=== PATIENT | male | born 1945 | race Caucasian/White ===

== ENCOUNTER 2019-01-05 08:31 | Observation (INO) | payer MEDICARE, SELFPAY ==
[2018-12-21 12:49] VITALS: BMI 37.8
[2019-01-04] VITALS (13 sets, daily range): BP systolic 109–141; BP diastolic 58–84; PULSE 69–91; RESP 15–18; TEMP 36.3–36.6; O2SAT 96–100; BMI 37.8
--- NOTE | 2019-01-04 06:00 | DI.RAD.S_ITS ---
PROCEDURE: XR KNEE RT 1TO2V INDICATIONS: Postop right total knee TECHNIQUE: 2 view(s) of the knee acquired. COMPARISON: None. FINDINGS: Bones: Patient is status post knee joint arthroplasty. Hardware components are in expected positions. Visualized bony structures are intact. Soft tissues: Overlying postoperative changes are noted. IMPRESSION: Expected postoperative appearance Dictated by: Jw Bejarano M.D. on 01/04/2019 at 15:19 Approved by: Jw Bejarano M.D. on 01/04/2019 at 15:19
--- NOTE | 2019-01-04 09:37 | PC.NURSE ---
Day shift: Pt not on AC unit at this time.
[2019-01-04] MEDS: CELECOXIB 200 MG CAPSULE PO (09:57)
[2019-01-04] MEDS: ACETAMINOPHEN 325 MG TABLET 975 MG PO ×3 (09:57→21:37)
[2019-01-04] MEDS: PREGABALIN 75 MG CAPSULE PO (09:57)
--- NOTE | 2019-01-04 10:27 | PM.PREOP ---
Pre-operative Note Interval Note History & Physical reviewed/Exam performed by Physician: Yes Changes to H&P: Yes H&P completed within 30 days and has changed as indicated here:: Has recurrent stress related rash that has recurred over entire body. Does not appear infection related. Not significant at site of knee incision.
[2019-01-04] MEDS: LACTATED RINGERS 1,000 ML 42 ML IV ×2 (10:38→11:38)
[2019-01-04] MEDS: CEFAZOLIN 2 GM/100 ML FROZ.PIGGY IV ×2 (10:45→20:46)
[2019-01-04] MEDS: TRANEXAMIC ACID 1,000 MG VIAL 1000 MG INJ (11:15)
--- NOTE | 2019-01-04 11:17 | SUR.OPER ---
Supine on padded OR bed. Pillow under head, arms secured on padded armboards <90 degree abduction. Safety belt across torso. Non-operative leg secured with tape over blanket over lower leg. Operative leg secured in DeMayo/Chip positioner. Foam padded brace at thigh of operative leg.
[2019-01-04] MEDS: BUPIVACAINE LIPOSOME 266 MG/20 ML VIAL INJ (11:33)
[2019-01-04] MEDS: BUPIVACAINE 0.25% W/ EPI VIAL 50 ML INJ (11:34)
[2019-01-04] MEDS: MORPHINE 4 MG/ML INJ INJ (11:34)
--- NOTE | 2019-01-04 11:50 | SUR.OPER ---
Diffused redness observed on both legs and arms in pre-op area.
--- NOTE | 2019-01-04 12:44 | PM.OP.1 ---
Operative Date/Time/Diagnoses Date of procedure: 01/04/19 Time of procedure: 12:30 Pre-op diagnosis: Right knee osteoarthritis Post-op diagnosis: same Procedure & Clinicians Procedure: Right total knee replacement Same procedure as scheduled: Yes Indications: The patient has had progressively worsening right knee pain with radiographic changes consistent with arthritis. Non-operative management has failed and the patient has requested total knee replacement. The risks, benefits and alternatives to surgery were discussed with the patient prior to proceeding. Risks discussed included, but were not limited to, failure to relieve pain, stiffness, infection, nerve damage, deep venous thrombosis, pulmonary embolism, stroke, coma, heart attack, permanent paralysis and , as well as the potential need for eventual revision of the prosthetic. Surgeon: Nacho Villarreal Digital Campaign Specialist: Kiah Spain Click Yes if Unassisted: No Anesthesia Type: Spinal, Sedation and Local Operative Notes Findings: Severe tricompartmental osteoarthritis, worst in the lateral compartment with significant hypoplasia of the lateral femoral condyle. Closure Type: primary Specimen(s): none sent Prosthetic devices, grafts, tissues, transplants, or devices: Implants used in this procedure were manufactured by the [employer] and included the BCS II Journey total knee replacement with a size 6 right cobalt chromium femoral component, a size 5 right non porous tibial base plate, a 9 mm cross-linked polyethylene insert and a 38 mm oval Vijaya II patellar component. Applied: implant(s) Estimated Blood Loss (mL): 50 Blood products transfused: none Tourniquet time (min): 59 Procedure in detail: The patient was seen in the pre-operative area, where the patient identified the right knee as the operative site and this was marked with my initials. The patient received pre-operative antibiotics, and was taken to the operating room and placed on the operative table in the supine position. After satisfactory anesthesia, a multimedia developer out was performed. The right leg was encircled with a tourniquet about the proximal thigh, and the leg was prepared from the toes to the tourniquet with ChloroPrep in the usual fashion and draped through sterile drapes. The leg was elevated and exsanguinated with Eschmark bandage and the tourniquet inflated to 250 mmHg pressure. The knee was approached through an approximately 18 cm incision centered over the patella and carried into the knee through a medial parapatellar arthrotomy. The anterior osteophytes and soft tissues were removed. The rotational landmarks of [place]'s line and the transepicondylar axis were marked on the femur with electrocautery, and intramedullary guide holes for the femur and tibia were created. The distal femoral cut was made in 6 degrees of valgus using the intramedullary guide at the primary cut setting. The proximal tibial cut was then made using the intramedullary guide, taking 9 mm of bone off the less involved side. The extension gap was checked and the rotation of the femoral component confirmed with the gap balancing system. The anterior, posterior and chamfer cuts were then made. The posterior osteophytes and soft tissues were then removed. The posterior capsule was injected with part of a mixture of 50 ml 0.25% Marcaine mixed with 20 ml Exparel and 4 mg of morphine for post-operative pain control. The remainder of this mixture was injected into the capsule and subcutaneous tissues during cement curing. The tibia was prepared with the rotation set by an extra medullary guide. Trial tibial and femoral components were then placed and the intercondylar notch cut through the femoral trial. Range of motion was 0-135 degrees, with good stability throughout the range. The patella was then cut to accommodate the patellar prosthetic. There was no need for a lateral release. The trials were then removed, and the femoral hole plugged with a bone plug. The bone was prepared with pulsatile lavage, and dried with a sponge. Cement was applied and the final prosthetics placed. Excess cement was removed during and after cement curing. After confirming there was no extruded cement posteriorly, the final tibial insert was placed. The knee was copiously irrigated and the tourniquet deflated. Hemostasis was obtained. The capsule was closed with interrupted # 2 polyester suture. The subcutaneous layer was closed with 3-0 Vicryl, and the skin with a running 3-0 V-Lock suture and SteriStrips. An Aquacel Ag dressing was applied and the patient was taken to recovery having tolerated the procedure well. Complications: none Condition: stable Disposition: PACU Plan for aftercare: The patient will be maintained on a standard total knee replacement protocol with weight bearing as tolerated. The patient will receive aspirin and sequential compression devices for DVT prophylaxis. The patient will be discharged home when safe for the home environment.
--- NOTE | 2019-01-04 13:44 | PC.NURSE ---
Day shift: Arrived on unit at approx 1345 from PACU. A&Ox3. Spouse Radha at bedside for support. Rt knee ORACIO wrapped with Aquacel is CDI. CMS ok. Sensation not totally returned. PPP. Calf SCD's in place. Oriented to room and call light. Agrees to not get OOB w/o help from staff.
[2019-01-04] MEDS: LACTATED RINGERS 1,000 ML 125 ML IV ×2 (14:09→21:45)
[2019-01-04] MEDS: IBUPROFEN 600 MG TABLET PO (14:10)
[2019-01-04] MEDS: OXYCODONE IR 5 MG TABLET PO ×2 (14:34→23:08)
--- NOTE | 2019-01-04 17:09 | PT.IIE ---
Current Diagnoses Unilateral primary osteoarthritis, right knee (01/04/19) Surgery Performed Operation Date: 01/04/19 10:15 Actual Procedures p Total Knee Arthroplasty(Right) - Nacho Villarreal MD Surgical History (Last Updated 12/31/18 @ 10:11 by Annel Gilliland RN) History of colonoscopy (Acute) Hx of tonsillectomy (Acute) Status post cataract extraction of both eyes with insertion of intraocular lens (Acute) Medical History (Last Updated 12/31/18 @ 10:21 by Annel Gilliland RN) Back pain (Acute) Diverticulosis (Acute) Itching (Acute) Numbness (Acute) Pre-diabetes (Acute) HTN (hypertension) (Acute) Hyperlipidemia (Acute) Localized edema (Acute) Osteoarthritis (Acute) Physical Therapy Inpatient Evaluation/Re-Eval M1 PT/OT-IP Prior Functional Status Start: 01/04/19 16:34 Freq: NEEDED Status: Active Protocol: Document 01/04/19 15:30 NFW (Rec: 01/04/19 17:09 NFW [id number]) Medical Review Prior Functional Status Medical History Reviewed Yes Diet/Fluid Consistency Regular Mobility and Gait Pt did not require any assistive devices for ambulation prior to TKA surgery. Activities of Daily Living and IADL's Prior to surgery patient reports that he was independent with all ADL's. Prior Functional Level (Other details) Prior to surgery he was most limited with static standing to < 5 minutes at a time. He also found it to be quite difficult to get up and down from the floor due to the inability to kneel onto his right knee. Prior to surgery his main exercise was using an Elliptical. He was able to drive and do some light cooking and cleanin. Social History Household Members spouse Living Arrangements House Number of Floors (Floors) One Floor Number of Stairs To Enter/Railing? Four steps into house, rail on each side. 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 Most of his work hours are at a computer. Very supportive . M2 PT-IP Current Condition Start: 01/04/19 16:34 Freq: NEEDED Status: Active Protocol: Document 01/04/19 15:30 NFW (Rec: 01/04/19 17:09 NFW [id number]) Physical Therapy Current Condition Current Condition Evaluation Date 01/04/19 Treatment Diagnosis Osteoarthritis Rt Knee; s/p TKA 01/04/19 Weight Bearing Status Weight Bearing Status Full Weight Bearing M3 PT-IP Subjective Start: 01/04/19 16:34 Freq: NEEDED Status: Active Protocol: Document 01/04/19 15:30 NFW (Rec: 01/04/19 17:09 NFW [id number]) Subjective Physical Therapy Visit Type Type Initial Evaluation Visit Start Time 15:30 Visit Stop Time 16:30 Total Visit Minutes 60 Number of MAIL MACHINE OPERATOR Visits 0 Physical Therapy Visit Comments Patient Comments Patient anxious about any movement of knee due to pain. Pain meds, ~ 20 minutes ago. Has been performing the recommended exercises for the knee at home on a regular basis. Patient Goals Return home with . Therapy Pain Assessment Pain When Pain Assessed At Rest Pain Present Pain Present Pain Reported Location Right Knee Intensity 4 Scale Used Numeric (1 - 10) Description Sharp Throbbing Pain Management Techniques Apply Cold Elevation Timing of Activity with Medications M4 PT-IP Mobility and Gait Start: 01/04/19 16:34 Freq: NEEDED Status: Active Protocol: Document 01/04/19 15:30 NFW (Rec: 01/04/19 17:09 NFW [id number]) PT-Bed Mobility Assessment Supine to Sit Supine to Sit Contact Guard Assistance 1 Person Assistance Scooting Scooting to Edge of Bed Contact Guard Assistance PT-Transfer Assessment Sit to and From Stand Sit to and from Stand Contact Guard Assistance 1 Person Assistance Equipment Transfer Assistive Device Gait Belt Front Wheeled Walker Orthotic/Prosthetic Devices or Brace: No Transfers Transfer Destination Chair Transfer Technique Stand Step Pivot Transfer Ability Level of Assist Contact Guard Assistance 1 Person Assistance Comments Mobility Comments Good follow through with instructions in getting out of bed, sitting at EOB and walking to chair. Able to accomplish with CGA. Gait Assessment Gait Gait Assistance Required: Contact Guard Assist 1 Person Assist Distance (Feet) 40 Able to Maintain Weight Bearing Status Yes During Gait Assistive Devices Assistive Device Gait Belt Front Wheeled Walker Orthotic/Prosthetic Devices or Brace: No Gait Deviations General Gait Pattern Decreased Stride Length Decreased Feet Clearance Flexed Trunk Factors Limiting Gait Function Factors Limiting Gait Function Decreased Activity Tolerance Decreased Strength Limited Range of Motion Pain Comments Gait Comments Instruction of proper procedure in use of FWW, able to equalize step lengths and perform step through gait pattern. Cuing for upright posture and placing WBAT RLE. PT-Balance Assessment Sitting Balance and Reactions Static Sitting Balance Ability Normal Dynamic Sitting Balance Ability Normal M5 PT-IP Objective Assessments Start: 01/04/19 16:34 Freq: NEEDED Status: Active Protocol: Document 01/04/19 15:30 NFW (Rec: 01/04/19 17:09 NFW [id number]) Orientation Orientation/Cognition Level of Alertness Alert Orientation Name Age Date Place Situation Language Function Ability No Deficits Noted Safety Awareness Understands Safety Issues Memory Description No Deficits Noted Comments Followed instructions well. Gross Range of Motion Upper Extremity ROM Assessment Within Functional Limits Lower Extremity ROM Assessment Right Impaired Strength Upper Extremity Strength Assessment Within Functional Limits Comments Strength Comments Able to attain a good quad set RLE. Sensation Assessment Sensation Gross Sensation WNL Comments Sensation Comments Decrease sensation remaining in perineal area. Muscle Tone Muscle Tone WNL Yes Other Assessments Other Other Assessments BP supine 117/58, pulse 73, O2 98 BP sitting at EOB 130/77, pulse 71 BP after treatment 113/72, pulse 72, O2 96 M6 PT-IP Treatment Start: 01/04/19 16:34 Freq: NEEDED Status: Active Protocol: Document 01/04/19 15:30 NFW (Rec: 01/04/19 17:09 NF [id number]) Physical Therapy Treatment Exercises Exercises Ankle Pumps Quad Sets Heel Slides Education Education Provided Post-Op Packet M7 PT-IP Assessment and Plan Start: 01/04/19 16:34 Freq: NEEDED Status: Active Protocol: Document 01/04/19 15:30 NFW (Rec: 01/04/19 17:09 [facility] [id number]) PT Summary Assessment and Plan Potential Rehabilitation Potential Excellent Status of Condition at Evaluation Stable Summary Impairments Pain ROM Strength Balance Coordination Sensation Tone Bed Mobility Transfers Gait Activity Tolerance Progress Towards Goals Progressing Toward Goals Assessment Summary Patient improved performance as we progressed with treatment. He also noticed decrease pain into right knee post treatment and decrease anxiousness. Appears to have full extension and ~ 80 degrees flexion with joshua bandage on. He does have notable edema into both lower legs/ankles. Goals Bed Mobility Goal Independent Transfer Goal Independent Gait Goal Independent Gait Distance 200' Other Goals Awareness of all exercises for TKA. Days to Meet Goals 2 Frequency of Treatment Frequency Of Treatment Twice a Day Treatment Plan Physical Therapy Treatment Plan Bed Mobility Training Transfer Training Gait Training Therapeutic Exercise Balance Retraining Post Op Education Discharge Planning Hot or Cold Pack Recommendations To Nursing Amount of Assist Needed 1 Person Assist Discharge Recommendations PT Discharge Recommendations Home with Assistance
[2019-01-04] MEDS: INSULIN ASPART 100 UNIT/ML INSULN PEN SUBCUT (17:14)
[2019-01-04] MEDS: ATORVASTATIN 20 MG TABLET PO (21:37)
[2019-01-04] MEDS: ASPIRIN EC 81 MG TABLET PO (21:37)
[2019-01-04] MEDS: DOCUSATE 100 MG CAPSULE PO (21:37)
[2019-01-04] MEDS: TAMSULOSIN 0.4 MG CAPSULE PO (21:38)
[2019-01-04] MEDS: METFORMIN HCL 500 MG TABLET PO (21:38)
[2019-01-05] MEDS: CEFAZOLIN 2 GM/100 ML FROZ.PIGGY IV (02:35)
[2019-01-05 05:45] VITALS: BP 133/74; PULSE 73; RESP 18; TEMP 36.7; O2SAT 98
[2019-01-05] MEDS: OXYCODONE IR 10 MG TABLET PO ×4 (06:04→21:42)
[2019-01-05 07:14] LABS: Hematocrit 41.6 % (41-53); Hemoglobin 13.5 g/dL (13.5-17.5)
--- NOTE | 2019-01-05 07:18 | PM.PNPO.1 ---
Subjective Date Patient Seen: 01/05/19 Time Patient Seen: 07:15 Interval history: The patient reports intermittently poor pain control. He found his pain improved after physical therapy. Exam Vital Signs (past 8 hours): - 01/05/19 05:45 Temperature 98.0 F Pulse Rate 73 Respiratory Rate 18 Blood Pressure 133/74 Pulse Oximetry 98 Oxygen Delivery Method Room Air Oxygen Flow Rate 0 Narrative Exam Narrative: Right lower extremity wound is dressed. There is no drainage on the bandage. Calf is soft. Light touch and motion are intact. Objective Labs Result Diagrams: 01/05/19 06:25 Labs: Laboratory Results - last 24 hr 01/05/19 06:25 Hgb 13.5 Hct 41.6 Assessment & Plan Post-op Postoperative Procedures Operation Date: 01/04/19 10:15 Actual Procedures Side Surgeon p Total Knee Arthroplasty Right Nacho Villarreal MD Postoperative day: 1 Postoperative status: doing well and marginal pain control Postoperative status narrative: The patient is doing well in general. He does have up and down pain control. He lives on the [facility] and has 4 stairs to get into his house. We will keep him for 1 additional day to make sure he does well on stairs and is not going to be likely to need to return to the hospital. If all goes well he should be ready for discharge tomorrow. Postoperative plan: routine post-op care and ambulate Postoperative plan narrative: Continue physical therapy with plan for discharge tomorrow morning. Time Spent With Patient less than 15 minutes
[2019-01-05 08:22] VITALS: BP 151/80; PULSE 85; RESP 20; TEMP 36.7; O2SAT 95
--- NOTE | 2019-01-05 08:58 | CM.DANOTE ---
DCP: Case received, EMR reviewed and met with patient. Introduced self and role. DCP template completed with information currently available. Patient is a 73 year old male who admitted yesterday morning to the care of the surgical team. PCP: Dr. Abraham. Payer: confirmed: Medicare. Patient came to hospital for surgical procedure. Had R. Total Knee Replacement. Has chronic history of r. Knee Osteoarthritis, and patient stated that this has been going on since 2012. Met with patient and . Pleasant. He and his just recently celebrated their 51 wedding anniversary. They both reside on [place], and have 3 children that live in the [place], [place] area. Discussed discharge planning. Patient has been independent, stated that he has not used a walker or cane prior to surgery. He stated that he already has sessions set up for outpatient physical therapy on [facility]. P: DCP to continue to follow. Will consult with physical therapy team as well. Patient should be able to go home with outpatient physical therapy set up if he progresses here with physical therapy team. Angela Warner RN/Field Sales Executive
[2019-01-05] MEDS: INSULIN ASPART 100 UNIT/ML INSULN PEN SUBCUT ×3 (08:59→16:57)
[2019-01-05] MEDS: ACETAMINOPHEN 325 MG TABLET 975 MG PO ×3 (09:02→21:01)
[2019-01-05] MEDS: ASPIRIN EC 81 MG TABLET PO ×2 (09:03→21:01)
[2019-01-05] MEDS: DOCUSATE 100 MG CAPSULE PO ×2 (09:03→21:01)
[2019-01-05] MEDS: hydroCHLOROthiazide 12.5 MG CAPSULE PO (09:04)
[2019-01-05] MEDS: METFORMIN HCL 500 MG TABLET PO ×2 (09:05→21:02)
[2019-01-05] MEDS: LORATADINE 10 MG TABLET PO (09:05)
[2019-01-05] MEDS: LISINOPRIL 10 MG TABLET PO (09:05)
[2019-01-05] MEDS: MONTELUKAST 10 MG TABLET PO (09:06)
--- NOTE | 2019-01-05 09:50 | PC.NURSE ---
Day Shift Pt is A&O able to make needs known. Right knee has aqucel with joshua wrap that is CDI. +PP and +CMS. Denies any numbness or tingling. Rates pain 4/10 to right knee medicated prior to PT this morning. Call light within reach at bedside.
--- NOTE | 2019-01-05 10:38 | PT.IPTN ---
Current Diagnoses Unilateral primary osteoarthritis, right knee (01/04/19) Surgery Performed Operation Date: 01/04/19 10:15 Actual Procedures p Total Knee Arthroplasty(Right) - Nacho Villarreal MD Physical Therapy Treatment Note M2 PT-IP Current Condition Start: 01/04/19 16:34 Freq: NEEDED Status: Active Protocol: Document 01/04/19 15:30 NFW (Rec: 01/04/19 17:09 NFW [id number]) Physical Therapy Current Condition Current Condition Evaluation Date 01/04/19 Treatment Diagnosis Osteoarthritis Rt Knee; s/p TKA 01/04/19 Weight Bearing Status Weight Bearing Status Full Weight Bearing M3 PT-IP Subjective Start: 01/04/19 16:34 Freq: NEEDED Status: Active Protocol: Document 01/05/19 10:30 SA (Rec: 01/05/19 10:38 SA [id number]) Subjective Physical Therapy Visit Type Type Treatment Note Visit Start Time 09:40 Visit Stop Time 10:20 Total Visit Minutes 40 Number of ASSISTANT MANAGER QUALITY MANAGEMENT Visits 1 Physical Therapy Visit Comments Patient Comments Pt up in chair and agreeable to PT, present. Pt reports painful night but knee pain is about a 4 or 5 now. Therapy Pain Assessment Pain When Pain Assessed During Mobility Pain Present Pain Present Pain Reported Location Right Knee Intensity 5 Scale Used Numeric (1 - 10) Description Sharp Throbbing Pain Management Techniques Apply Cold Elevation Timing of Activity with Medications M4 PT-IP Mobility and Gait Start: 01/04/19 16:34 Freq: NEEDED Status: Active Protocol: Document 01/05/19 10:30 SA (Rec: 01/05/19 10:38 SA [id number]) PT-Bed Mobility Assessment Rolling Type of Rolling Roll to Left Level of Assist Standby Assistance Supine to Sit Supine to Sit Contact Guard Assistance 1 Person Assistance Sit to Supine Sit to Supine Contact Guard Assistance Scooting Scooting to Edge of Bed Contact Guard Assistance Scooting Up and Down in Bed Contact Guard Assistance PT-Transfer Assessment Sit to and From Stand Sit to and from Stand Contact Guard Assistance 1 Person Assistance Equipment Transfer Assistive Device Gait Belt Front Wheeled Walker Orthotic/Prosthetic Devices or Brace: No Transfers Transfer Destination Chair Transfer Technique Stand Step Pivot Transfer Ability Level of Assist Contact Guard Assistance 1 Person Assistance Comments Mobility Comments Pt CGA with most mobilities, uses FWW safely, WBs heavily through UEs. Gait Assessment Gait Gait Assistance Required: Contact Guard Assist 1 Person Assist Distance (Feet) 80 Able to Maintain Weight Bearing Status Yes During Gait Assistive Devices Assistive Device Gait Belt Front Wheeled Walker Orthotic/Prosthetic Devices or Brace: No Gait Deviations General Gait Pattern Decreased Stride Length Decreased Feet Clearance Flexed Trunk Factors Limiting Gait Function Factors Limiting Gait Function Decreased Activity Tolerance Decreased Strength Limited Range of Motion Pain Comments Gait Comments Pt with step to gait pattern that he is able to correct with cues and focus, gradual decrease in WBing through UEs but tends to WB heavily through FWW. Do not recommend 4WW at this time and agrees. Improving quality and gait distance. Stair Climbing Assessment Comments Stair Climbing Comments Pt has 4 stairs to enter dede with B rails. Pt agreeable to attempt stairs this afternoon. PT-Balance Assessment Sitting Balance and Reactions Static Sitting Balance Ability Normal Dynamic Sitting Balance Ability Normal M5 PT-IP Objective Assessments Start: 01/04/19 16:34 Freq: NEEDED Status: Active Protocol: Document 01/04/19 15:30 NFW (Rec: 01/04/19 17:09 NFW [id number]) Orientation Orientation/Cognition Level of Alertness Alert Orientation Name Age Date Place Situation Language Function Ability No Deficits Noted Safety Awareness Understands Safety Issues Memory Description No Deficits Noted Comments Followed instructions well. Gross Range of Motion Upper Extremity ROM Assessment Within Functional Limits Lower Extremity ROM Assessment Right Impaired Strength Upper Extremity Strength Assessment Within Functional Limits Comments Strength Comments Able to attain a good quad set RLE. Sensation Assessment Sensation Gross Sensation WNL Comments Sensation Comments Decrease sensation remaining in perineal area. Muscle Tone Muscle Tone WNL Yes Other Assessments Other Other Assessments BP supine 117/58, pulse 73, O2 98 BP sitting at EOB 130/77, pulse 71 BP after treatment 113/72, pulse 72, O2 96 M6 PT-IP Treatment Start: 01/04/19 16:34 Freq: NEEDED Status: Active Protocol: Document 01/05/19 10:30 SA (Rec: 01/05/19 10:38 [id number]) Physical Therapy Treatment Exercises Exercises Ankle Pumps Quad Sets Heel Slides Education Education Provided Post-Op Packet Safety Other Treatments Other Treatment Performed Pt stood at sink x 5 min to wash hands, face and brush teeth. Pt also able to stand at toilet to urinate in bathroom. No LOB noted. M7 PT-IP Assessment and Plan Start: 01/04/19 16:34 Freq: NEEDED Status: Active Protocol: Document 01/05/19 10:30 SA (Rec: 01/05/19 10:38 [id number]) PT Summary Assessment and Plan Summary Assessment Summary Pt progressing well with mobility. Increased pain levels today but ice and pain medication helping. Pt has supportive that is home to assist upon d/c. Frequency of Treatment Frequency Of Treatment Twice a Day Treatment Plan Physical Therapy Treatment Plan Bed Mobility Training Transfer Training Gait Training Therapeutic Exercise Balance Retraining Post Op Education Discharge Planning Hot or Cold Pack Recommendations To Nursing Amount of Assist Needed 1 Person Assist Discharge Recommendations PT Discharge Recommendations Home with Assistance Outpatient PT
[2019-01-05 11:43] VITALS: BP 144/84; PULSE 77; RESP 18; TEMP 36.8; O2SAT 95
[2019-01-05] MEDS: IBUPROFEN 600 MG TABLET PO (12:57)
--- NOTE | 2019-01-05 14:35 | PT.IPTN ---
Current Diagnoses Unilateral primary osteoarthritis, right knee (01/04/19) Surgery Performed Operation Date: 01/04/19 10:15 Actual Procedures p Total Knee Arthroplasty(Right) - Nacho Villarreal MD Physical Therapy Treatment Note M2 PT-IP Current Condition Start: 01/04/19 16:34 Freq: NEEDED Status: Active Protocol: Document 01/04/19 15:30 NFW (Rec: 01/04/19 17:09 NFW [id number]) Physical Therapy Current Condition Current Condition Evaluation Date 01/04/19 Treatment Diagnosis Osteoarthritis Rt Knee; s/p TKA 01/04/19 Weight Bearing Status Weight Bearing Status Full Weight Bearing M3 PT-IP Subjective Start: 01/04/19 16:34 Freq: NEEDED Status: Active Protocol: Document 01/05/19 14:23 SA (Rec: 01/05/19 14:35 SA [id number]) Subjective Physical Therapy Visit Type Type Treatment Note Visit Start Time 13:33 Visit Stop Time 14:01 Total Visit Minutes 28 Number of VIDEO MANAGER Visits 2 Physical Therapy Visit Comments Patient Comments Pt reports he has been sitting up in chair since this AM, did some LE exercises and walked to bathroom once. Patient Goals To return home to [facility] with . Therapy Pain Assessment Pain When Pain Assessed During Weight Bearing Pain Present Pain Present Pain Reported Location Right Knee Intensity 4 Scale Used Numeric (1 - 10) Pain Management Techniques Apply Cold Elevation Timing of Activity with Medications M4 PT-IP Mobility and Gait Start: 01/04/19 16:34 Freq: NEEDED Status: Active Protocol: Document 01/05/19 14:23 SA (Rec: 01/05/19 14:35 SA [id number]) PT-Transfer Assessment Sit to and From Stand Sit to and from Stand Standby Assistance 1 Person Assistance Equipment Transfer Assistive Device Gait Belt Front Wheeled Walker Orthotic/Prosthetic Devices or Brace: No Transfers Transfer Destination Chair Transfer Technique Stand Step Pivot Transfer Ability Level of Assist Contact Guard Assistance 1 Person Assistance Comments Mobility Comments Pt SBA-CGA with all mobilities and uses FWW safely. Progressing well with functional mobility. present for treatment again. Gait Assessment Gait Gait Assistance Required: Standby Assistance Contact Guard Assist 1 Person Assist Distance (Feet) 120 Able to Maintain Weight Bearing Status Yes During Gait Assistive Devices Assistive Device Gait Belt Front Wheeled Walker Orthotic/Prosthetic Devices or Brace: No Gait Deviations General Gait Pattern Decreased Stride Length Decreased Feet Clearance Flexed Trunk Factors Limiting Gait Function Factors Limiting Gait Function Decreased Activity Tolerance Decreased Strength Limited Range of Motion Pain Comments Gait Comments Pt with improving step length and upright posture, increased quality of gait and gait distance. Stair Climbing Assessment Evaluation Level of Assist On Stairs Contact Guard Assistance Devices Stair Climbing Assistive Devices Left Railing Right Railing Technique/Endurance Stair Climbing Direction Ascend and Descend Stair Climbing Technique Step to Step Number of Steps Climbed 3 Query Text: Stair Climbing Set # Repetitions (reps) 1 Comments Stair Climbing Comments Caregiver training conducted with for stair training. Pt CGA with step to gait pattern and min cues for safe technique. B rails available at home. PT-Balance Assessment Sitting Balance and Reactions Static Sitting Balance Ability Normal Dynamic Sitting Balance Ability Normal M5 PT-IP Objective Assessments Start: 01/04/19 16:34 Freq: NEEDED Status: Active Protocol: Document 01/04/19 15:30 NFW (Rec: 01/04/19 17:09 NFW [id number]) Orientation Orientation/Cognition Level of Alertness Alert Orientation Name Age Date Place Situation Language Function Ability No Deficits Noted Safety Awareness Understands Safety Issues Memory Description No Deficits Noted Comments Followed instructions well. Gross Range of Motion Upper Extremity ROM Assessment Within Functional Limits Lower Extremity ROM Assessment Right Impaired Strength Upper Extremity Strength Assessment Within Functional Limits Comments Strength Comments Able to attain a good quad set RLE. Sensation Assessment Sensation Gross Sensation WNL Comments Sensation Comments Decrease sensation remaining in perineal area. Muscle Tone Muscle Tone WNL Yes Other Assessments Other Other Assessments BP supine 117/58, pulse 73, O2 98 BP sitting at EOB 130/77, pulse 71 BP after treatment 113/72, pulse 72, O2 96 M6 PT-IP Treatment Start: 01/04/19 16:34 Freq: NEEDED Status: Active Protocol: Document 01/05/19 14:23 SA (Rec: 01/05/19 14:35 SA [id number]) Physical Therapy Treatment Exercises Exercises Ankle Pumps Quad Sets Heel Slides Education Education Provided Post-Op Packet Safety Other Treatments Other Treatment Performed Noted LE swelling of non- surgical leg and increased purple tone, concerned NSG notified. M7 PT-IP Assessment and Plan Start: 01/04/19 16:34 Freq: NEEDED Status: Active Protocol: Document 01/05/19 14:23 SA (Rec: 01/05/19 14:35 [id number]) PT Summary Assessment and Plan Summary Assessment Summary Pt able to manage stairs safely with CGA and B rails, improving gait and functional mobility. present to provide care at home and pt plans to continue with OP PT upon d/c home. Pt ready for probable d/c home tomorrow. Frequency of Treatment Frequency Of Treatment Twice a Day Recommendations To Nursing Amount of Assist Needed 1 Person Assist Discharge Recommendations PT Discharge Recommendations Home with Assistance Outpatient PT Equipment Needed for Home Before Pt has 4WW, may need FWW. Discharge
[2019-01-05 15:20] VITALS: BP 138/68; PULSE 79; RESP 18; TEMP 36.7; O2SAT 96
[2019-01-05 19:47] VITALS: BP 133/72; PULSE 75; RESP 20; TEMP 36.4
[2019-01-05] MEDS: ATORVASTATIN 20 MG TABLET PO (21:02)
[2019-01-05] MEDS: TAMSULOSIN 0.4 MG CAPSULE PO (21:02)
[2019-01-06 00:25] VITALS: BP 125/72; PULSE 71; RESP 20; TEMP 36.2; O2SAT 95
[2019-01-06 04:50] VITALS: BP 139/78; PULSE 79; RESP 16; TEMP 36.6; O2SAT 98
--- NOTE | 2019-01-06 07:02 | PM.DS.1 ---
History of Present Illness Date Patient Seen: 01/06/19 Time Patient Seen: 06:50 Chief complaint: [id number] RIGHT TOTAL KNEE ARTHROPLASTY Narrative: The history and physical exam are contained in the chart previously completed note. Please refer to that note for this information. Discharge Providers Date of admission: 01/04/19 08:10 Primary care physician: Charles Abraham MD Consults: 01/04/19 13:39 Consult to Discharge Planning Routine Comment: Consult to Physical Therapy Evaluate & Treat Comment: Physician Instructions: postop TKA protocol 01/04/19 14:30 Consult to Director Project Management Routine Comment: Discharge provider: Nacho Villarreal MD Discharge Date: 01/06/19 Summary Discharge Diagnosis: 1. Right knee osteoarthritis 2. Diabetes mellitus Hospital Course: The patient was admitted to the hospital and taken directly to the operating room on January 04, 2019. He underwent a right total knee replacement without complications. He was stable throughout his postoperative course. He made slow progress with physical therapy and was ready for discharge on postoperative day 2. Status at Discharge Cognitive/behavioral status at discharge: At baseline. Functional status at discharge: uses cane/walker Overall status at discharge: patient is progressing back to baseline Time Spent with Patient Less than 30 minutes Exam Vital Signs (past 8 hours): - 01/06/19 00:25 01/06/19 04:50 Temperature 97.1 F L 97.9 F Pulse Rate 71 79 Respiratory Rate 20 16 Blood Pressure 125/72 139/78 Pulse Oximetry 95 98 Oxygen Delivery Method Room Air Oxygen Flow Rate 0 Narrative Exam Narrative: Right knee wound is dressed with no drainage on the bandage. Calf is soft. Light touch and motion are intact in the right lower extremity. Objective Labs Result Diagrams: 01/05/19 06:25 Labs: Laboratory Results - last 24 hr 01/05/19 06:25 Hgb 13.5 Hct 41.6 Discharge Plan Discharge Plan Patient Disposition: Home Discharge Med Rec/Prescriptions Prescriptions: New aspirin 81 mg Tablet,Delayed Release (Dr/Ec) 81 mg PO BID 45 Days Qty: 90 RF: 0 ibuprofen 600 mg Tablet 600 mg PO Q6HR PRN (Reason: As Needed For Fever/Mild Pain) 45 Days RF: 0 oxycodone 5 mg Tablet 5 mg PO Q3HR PRN (Reason: Pain, Moderate (4-6)) Qty: 60 RF: 0 Continued omega 3-viy-khp-fish oil [Fish Oil] 1,000 mg (120 mg-180 mg) Capsule 1 tab PO BID Qty: 0 RF: 0 atorvastatin [Lipitor] 20 MG tablet 20 mg PO HS Qty: 90 RF: 1 lisinopril-hydrochlorothiazide [Zestoretic] 10 MG/12.5 MG tablet 1 tab PO QDAY Qty: 90 RF: 1 metformin [Glucophage] 500 MG tablet 500 mg PO BID Qty: 360 RF: 1 tamsulosin 0.4 mg Capsule 0.4 mg PO BEDTIME RF: 0 montelukast 10 mg Tablet 10 mg PO QAM RF: 0 cetirizine 10 mg Capsule 1 tab PO BID RF: 0 Discontinued aspirin 81 mg Tablet,Delayed Release (Dr/Ec) 81 mg PO DAILY Qty: 0 RF: 0 Follow up/Referrals: Nacho Villarreal MD [Physician] - 2 Weeks Charles Abraham MD [Primary Care Provider] - Provider Discharge Instructions Diet: Diet as Tolerated and Carb-consistent/Diabetic Activity: You may bear weight as tolerated on the right leg. Perform your physical therapy exercises as directed. Cold/Heat Therapy: Apply ice to the right knee for 15 min of every hour as needed for pain. Skin/Wound/Dressing Care Report to your healthcare provider any signs of infection, such as:: chills, fever, night sweats, increased pain, unusual drainage and unusual redness Dressing: Removed the Dylan wrap 3 days after surgery. You may shower with the deeper dressing in place. Do not soak the deeper dressing under water. If the center strip of the deeper dressing becomes saturated with either water or blood please call the office. Visit Report/Discharge Packet Instructions: DI for Knee Replacement Stand Alone Forms: Surgery Discharge Discharge Data Primary Care Provider: Charles Abraham Attending Provider: Nacho Villarreal Admit Date/Time: 01/04/19 08:10
[2019-01-06 08:00] VITALS: BP 139/66; PULSE 80; RESP 18; TEMP 36.6; O2SAT 98
[2019-01-06] MEDS: OXYCODONE IR 10 MG TABLET PO (08:24)
[2019-01-06] MEDS: ACETAMINOPHEN 325 MG TABLET 975 MG PO (08:48)
[2019-01-06] MEDS: ASPIRIN EC 81 MG TABLET PO (08:49)
[2019-01-06] MEDS: DOCUSATE 100 MG CAPSULE PO (08:49)
[2019-01-06] MEDS: hydroCHLOROthiazide 12.5 MG CAPSULE PO (08:50)
[2019-01-06] MEDS: METFORMIN HCL 500 MG TABLET PO (08:50)
[2019-01-06] MEDS: LORATADINE 10 MG TABLET PO (08:50)
[2019-01-06] MEDS: LISINOPRIL 10 MG TABLET PO (08:50)
[2019-01-06] MEDS: MONTELUKAST 10 MG TABLET PO (08:50)
[2019-01-06] MEDS: INSULIN ASPART 100 UNIT/ML INSULN PEN SUBCUT (08:51)
--- NOTE | 2019-01-06 09:50 | PT.IPTN ---
Current Diagnoses Unilateral primary osteoarthritis, right knee (01/04/19) Surgery Performed Operation Date: 01/04/19 10:15 Actual Procedures p Total Knee Arthroplasty(Right) - Nacho Villarreal MD Physical Therapy Treatment Note M2 PT-IP Current Condition Start: 01/04/19 16:34 Freq: NEEDED Status: Active Protocol: Document 01/04/19 15:30 NFW (Rec: 01/04/19 17:09 NFW [id number]) Physical Therapy Current Condition Current Condition Evaluation Date 01/04/19 Treatment Diagnosis Osteoarthritis Rt Knee; s/p TKA 01/04/19 Weight Bearing Status Weight Bearing Status Full Weight Bearing M3 PT-IP Subjective Start: 01/04/19 16:34 Freq: NEEDED Status: Active Protocol: Document 01/06/19 09:39 SA (Rec: 01/06/19 09:50 SA [id number]) Subjective Physical Therapy Visit Type Type Treatment Note Visit Start Time 08:44 Visit Stop Time 09:10 Total Visit Minutes 26 Number of ACID PUMPER Visits 3 Physical Therapy Visit Comments Patient Comments Pt looking forward to going home, agreeable to final PT session prior to d/c. Patient Goals To return home to [facility] with . Therapy Pain Assessment Pain When Pain Assessed During Weight Bearing Pain Present Pain Present Pain Reported Location Right Knee Intensity 4 Scale Used Numeric (1 - 10) Pain Management Techniques Apply Cold Elevation Timing of Activity with Medications M4 PT-IP Mobility and Gait Start: 01/04/19 16:34 Freq: NEEDED Status: Active Protocol: Document 01/06/19 09:39 SA (Rec: 01/06/19 09:50 SA [id number]) PT-Transfer Assessment Sit to and From Stand Sit to and from Stand Standby Assistance 1 Person Assistance Equipment Transfer Assistive Device Gait Belt Front Wheeled Walker Orthotic/Prosthetic Devices or Brace: No Transfers Transfer Destination Chair Transfer Technique Stand Step Pivot Transfer Ability Level of Assist Standby Assistance 1 Person Assistance Comments Mobility Comments Repeated sit to stands from chair with SBA during dressing tasks. Min A with upper/lower body dressing. Stand pivot txs on/off toilet with SBA and min cues. Gait Assessment Gait Gait Assistance Required: Standby Assistance 1 Person Assist Distance (Feet) 100 Able to Maintain Weight Bearing Status Yes During Gait Assistive Devices Assistive Device Gait Belt Front Wheeled Walker Orthotic/Prosthetic Devices or Brace: No Gait Deviations General Gait Pattern Decreased Stride Length Decreased Feet Clearance Flexed Trunk Factors Limiting Gait Function Factors Limiting Gait Function Decreased Activity Tolerance Decreased Strength Limited Range of Motion Pain Comments Gait Comments Gait training throuput room to collect clothing and gather supplies for d/c. tight turning with FWW and no LOB, cues for increasing WBing through RLE. PT-Balance Assessment Sitting Balance and Reactions Static Sitting Balance Ability Normal Dynamic Sitting Balance Ability Normal M5 PT-IP Objective Assessments Start: 01/04/19 16:34 Freq: NEEDED Status: Active Protocol: Document 01/04/19 15:30 NFW (Rec: 01/04/19 17:09 NFW [id number]) Orientation Orientation/Cognition Level of Alertness Alert Orientation Name Age Date Place Situation Language Function Ability No Deficits Noted Safety Awareness Understands Safety Issues Memory Description No Deficits Noted Comments Followed instructions well. Gross Range of Motion Upper Extremity ROM Assessment Within Functional Limits Lower Extremity ROM Assessment Right Impaired Strength Upper Extremity Strength Assessment Within Functional Limits Comments Strength Comments Able to attain a good quad set RLE. Sensation Assessment Sensation Gross Sensation WNL Comments Sensation Comments Decrease sensation remaining in perineal area. Muscle Tone Muscle Tone WNL Yes Other Assessments Other Other Assessments BP supine 117/58, pulse 73, O2 98 BP sitting at EOB 130/77, pulse 71 BP after treatment 113/72, pulse 72, O2 96 M6 PT-IP Treatment Start: 01/04/19 16:34 Freq: NEEDED Status: Active Protocol: Document 01/06/19 09:39 SA (Rec: 01/06/19 09:50 [id number]) Physical Therapy Treatment Exercises Exercises Ankle Pumps Quad Sets Heel Slides Education Education Provided Post-Op Packet Safety M7 PT-IP Assessment and Plan Start: 01/04/19 16:34 Freq: NEEDED Status: Active Protocol: Document 01/06/19 09:39 SA (Rec: 01/06/19 09:50 SA [id number]) PT Summary Assessment and Plan Potential Rehabilitation Potential Excellent Status of Condition at Evaluation Stable Summary Assessment Summary Pt to d/c this AM, ambulating well with improving posture and ability to WB through RLE. Safe with SBA for functional transfers and bed mobility. Frequency of Treatment Frequency Of Treatment Twice a Day Treatment Plan Physical Therapy Treatment Plan Bed Mobility Training Transfer Training Gait Training Therapeutic Exercise Balance Retraining Post Op Education Discharge Planning Hot or Cold Pack Recommendations To Nursing Amount of Assist Needed 1 Person Assist Discharge Recommendations PT Discharge Recommendations Home with Assistance Outpatient PT Equipment Needed for Home Before FWW dispensed Discharge
--- NOTE | 2019-01-06 14:01 | PC.NURSE ---
Walker Pt did not receive the FWW, declined to take it. PT returned to stores.
== END 2019-01-06 09:20 | disposition home or self-care (01) ==
LOC: AC 01-06 07:02 → OR 01-06 11:27 → AC 01-06 11:29 → OR 01-06 11:29
PROVIDERS: Admitting Provider Physician Assistant; PCP Family Medicine; Visit Provider Orthopaedic Surgery
PROC: 0SRC0JZ Replacement of Right Knee Joint with Synthetic Substitute, Open Approach (ICD-10-PCS; CPT 27447; principal; 2019-01-04 10:15)
DX: M17.11 Unilateral primary osteoarthritis, right knee (principal); E66.9 Obesity, unspecified; I10 Essential (primary) hypertension; Z79.84 Long term (current) use of oral hypoglycemic drugs
CPT/HCPCS: 27447; 36415; 73560; 82962; 85014; 85018; 97110; 97116; 97161; 97530; C1776; G0378; C9290; J0690; J2250; J2270; J2704; J3010

== ENCOUNTER → 2019-04-19 10:52 | Outpatient (CLI) | payer MEDICARE, SELFPAY ==
[2019-01-04 14:15] VITALS: BMI 37.8
--- NOTE | 2019-04-19 | DI.MRI.S_ITS ---
PROCEDURE: MR LUMBAR SPINE WO CON INDICATIONS: LOW BACK PAIN TECHNIQUE: Noncontrast sagittal T1 spin echo and T2 fast echo, sagittal STIR, axial T1 and T2 fast spin echo through the lumbar spine. In cases with scoliosis, additional coronal T2 fast spin echo may be performed. COMPARISON: [facility], CR, XR LUMBAR SPINE WITH OLBIQUES PLUS FLEXION EXTENSION, 03/29/2019, 11:11. FINDINGS: Image quality: Excellent. Alignment and Curvature: There is moderate levoscoliosis. There is grade 1 anterolisthesis of L4-L5 Bone Marrow: Degenerative endplate signal changes are present. No acute vertebral body compression fractures. Spinal Cord: Conus medullaris terminates at the T12-L1 level. Visualized cord demonstrates normal signal and size. Paraspinous Soft Tissues: No paravertebral masses. L1-L2: Preserved disc height. Mild disc desiccation. There is mild posterior disc bulge. The central canal is patent. No foraminal stenosis. L2-L3: Moderate to severe loss of disc height and disc desiccation. There is diffuse posterior disc bulge and disc osteophyte complex. Moderate right facet arthropathy. The central canal is mildly narrowed. Moderate bilateral foraminal stenosis. L3-L4: Moderate loss of disc height and disc desiccation. There is diffuse posterior disc bulge and disc osteophyte complex. There is superimposed posterior central disc protrusion. Mild bilateral facet arthropathy. The central canal is moderately narrowed. Moderate bilateral foraminal stenosis. Possible definitive nerve root impingement. L4-L5: Severe loss of disc height and disc desiccation. There is diffuse posterior disc bulge and disc osteophyte complex. Moderate right and mild left facet arthropathy. The central canal is mildly narrowed. Moderate left and mild right foraminal stenosis. Possible definitive nerve root impingement. L5-S1: Severe loss of disc height and disc desiccation. There is diffuse posterior disc bulge and disc osteophyte complex. Moderate right and severe left facet arthropathy. The central canal is mildly narrowed. Moderate left and mild right foraminal stenosis. Possible definitive nerve root impingement. IMPRESSION: 1. Multilevel degenerative disc disease and facet arthropathy as described. 2. Moderate central canal stenosis at L3-L4, mild central canal stenosis at several other levels. 3. Multilevel foraminal stenosis described. Dictated by: Nohemy Nicole M.D. on 04/19/2019 at 12:23 Approved by: Nohemy Nicole M.D. on 04/19/2019 at 12:53
== END ==
PROVIDERS: PCP Family Medicine; Visit Provider Physical Medicine & Rehabilitation
DX: M54.5 Low back pain (principal); M51.36 Other intervertebral disc degeneration, lumbar region; M51.37 Other intervertebral disc degeneration, lumbosacral region; M48.061 Spinal stenosis, lumbar region without neurogenic claudication; M48.07 Spinal stenosis, lumbosacral region
CPT/HCPCS: 72148

== ENCOUNTER → 2022-12-18 12:04 | Outpatient (CLI) | payer MEDICARE, SELFPAY ==
[2019-01-04 14:15] VITALS: BMI 37.8
--- NOTE | 2022-12-18 | DI.ECHO.S_ITS ---
[facility]---------+ [facility] +---------+ : : [address] : [address] [place] : : : : [id number] : : : : Phone: [phone]+ Echocardiogram Report + + :Name: RONI VALLE Study Date: 12/18/2022 Height: 68 in : :[facility] ReadingLocation: Weight: 245 lb : : Gender: Male BSA: 2.2 m2 : :: 1945 Age: 77 yrs BP: 153/84 mmHg: :Reason For Study: Edema : :Ordering Physician: PERNELL, : :RENEA Mckoy Performed By: Marisela Liu : :Referring: RENEA GIMENEZ : + + Interpretation Summary The left ventricle is normal in size. Left ventricular systolic function is normal. The ejection fraction is estimated to be 60-65%. There are no obvious focal wall motion abnormalities noted but poor endocardial definition reduces the sensitivity for the detection of such. Diastolic parameters suggest a relaxation abnormality of the left ventricle, consistent with probable normal filling pressures. The left atrial size is normal. The right atrium is normal in size. There is no significant valvular heart disease. The ascending aorta is at the upper limits of normal in size. Procedure: A two-dimensional transthoracic echocardiogram with color flow and Doppler was performed. The study quality was technically difficult. The patient was in sinus rhythm with heart rates between 65-88 bpm during the exam. Left Ventricle: The left ventricle is normal in size. Left ventricular wall thickness is mild-moderately increased. Left ventricular systolic function is normal. The ejection fraction is estimated to be 60-65%. There are no obvious focal wall motion abnormalities noted but poor endocardial definition reduces the sensitivity for the detection of such. Diastolic parameters suggest a relaxation abnormality of the left ventricle, consistent with probable normal filling pressures. Right Ventricle: The right ventricle is not well visualized. Atria: The left atrial size is normal. The right atrium is normal in size. There is no Doppler evidence for an interatrial shunt. Mitral Valve: The mitral valve is normal in structure and function. There is no mitral regurgitation noted. Aortic Valve: The aortic valve is normal in structure and function. There is trace aortic regurgitation. Tricuspid Valve: The tricuspid valve is normal in structure and function. No tricuspid regurgitation. Pulmonary artery pressures cannot be estimated because of the lack of a measurable TR jet velocity. Pulmonic Valve: The pulmonic valve leaflets are thin and pliable; valve motion is normal. There is no pulmonic valvular regurgitation. There is no significant valvular heart disease. Great Vessels: The aortic root is normal size. The ascending aorta is at the upper limits of normal in size. The IVC is of normal diameter and collapses greater than 50% with a sniff. This suggests a low right atrial pressure of 3 mm Hg. Pericardium/ Pleura There is no pericardial effusion. There is no pleural effusion. MMode/2D Measurements & Calculations LVIDd: 4.0 cm LVOT diam: 2.2 cm LVIDs: 2.6 cm Ao root diam: 3.6 cm FS: 35.0 % asc Aorta Diam: 3.5 cm IVSd: 1.3 cm LVPWd: 1.1 cm LV rojo. diameter/BSA (cm/m^2): 1.8 LV sys. diameter/BSA (cm/m^2): 1.2 LA dimension: 3.5 cm RA long axis: 4.5 cm LA A2 area: 18.3 cm2 IVC diam: 1.8 cm LA A4 area: 16.0 cm2 LA length (vol): 5.1 cm LA vol: 49.2 ml LA vol index: 22.1 ml/m2 RVD1 (basal): 3.8 cm LVLs ap4: 5.0 cm LVLd ap2: 6.6 cm TAPSE_phl: 1.9 cm LVLs ap2: 4.6 cm Doppler Measurements & Calculations Ao V2 max: 129.0 cm/sec LVOT Max Neri: 115.0 cm/sec Ao V2 mean: 91.3 cm/sec LV V1 max P.3 mmHg Ao max P.0 mmHg LV V1 VTI: 24.2 cm Ao mean P.0 mmHg ARNIE(I,D): 3.6 cm2 Ao V2 VTI: 25.6 cm ARNIE(V,D): 3.4 cm2 sev ratio: 0.95 ARNIE indexed to BSA (cm^2/m^2): 1.6 MV E max neri: 79.7 cm/sec PA V2 max: 76.5 cm/sec MV A max neri: 129.0 cm/sec PA V2 mean: 52.5 cm/sec MV E/A: 0.62 PA mean P.0 mmHg Med Peak E' Neri: 8.0 cm/sec E/E' med: 9.9 Lat Peak E' Neri: 5.5 cm/sec E/E' lat: 14.5 E/e' average: 12.2 MV dec time: 0.30 sec MVA(VTI): 3.1 cm2 MV V2 mean: 85.9 cm/sec SV(LVOT): 92.0 ml MV mean P.0 mmHg MV V2 VTI: 29.5 cm AV VR_phl: 0.89 MV P1/2t-pr_phl: 89.0 msec ARNIE(VTI)/BSA_phl: 1.6 Reading Physician:06:54 PM
== END ==
PROVIDERS: PCP Nurse Practitioner Family; Referring Provider Nurse Practitioner Family; Visit Provider Nurse Practitioner Family
DX: R60.1 Generalized edema (principal)
CPT/HCPCS: 93306

== ENCOUNTER 2024-02-22 20:14 | Emergency (ER) | payer MEDICARE, SELFPAY ==
[2019-01-04 14:15] VITALS: BMI 37.8
[2024-02-22 20:19] VITALS: BP 169/81; PULSE 93; RESP 16; TEMP 36.1; O2SAT 96; BMI 38.5
--- NOTE | 2024-02-22 21:30 | PC.NURSE ---
Assessment differed until MD at bedside d/t issue being in genital area. Pt verbalized understanding.
[2024-02-22 21:35] LABS: BUN Creatinine Ratio 33.6 (6-22); Blood Urea Nitrogen 43 mg/dL (9-20); Calcium 9.8 mg/dL (8.4-10.2); Carbon Dioxide 21 mmol/L (22-32); Chloride 110 mmol/L (98-107); Estimated Glomerular Filt Rate 57 mL/min (>60); Glucose 130 mg/dL (80-110); HEMOLYSIS 20 (0-50); Potassium 3.8 mmol/L (3.4-5.1); Sodium 142 mmol/L (137-145)
[2024-02-22 21:36] LABS: Add Manual Diff / Slide Review NO; Basophils Absolute Auto 0 /uL (0-100); Basophils Percent Auto 0.4 % (0-2); Eosinophils Absolute Auto 200 /uL (0-450); Eosinophils Percent Auto 1.7 % (2-4); Hematocrit 40.9 % (41-53); Hemoglobin 13.7 g/dL (13.5-17.5); Lymphocytes Absolute Auto 2100 /uL (1100-4500); Lymphocytes Percent Auto 22.6 % (25-40); Mean Corpuscular HGB Conc 33.6 % (30-36); Mean Corpuscular Hemoglobin 31.6 PG (26-34); Monocytes Absolute Auto 900 /uL (0-900); Monocytes Percent Auto 9.7 % (3-14); Neutrophils Absolute Auto 6000 /uL (1500-7000); Neutrophils Percent Auto 65.6 % (50-75); Platelet Count 210 X10^3/uL (150-400); Red Blood Cell Count 4.35 X10^6/uL (4.5-5.9); Red Cell Distribution Width 13.1 % (11.6-14.8); White Blood Cell Count 9.2 X10^3/uL (4.5-11.0)
--- NOTE | 2024-02-22 22:00 | ED_ITS ---
HPI - Skin/Abscess/Foreign Bdy General Chief complaint: Skin/Abscess/Foreign Body Stated complaint: infection/ increasing rash spreading 2wks Time Seen by Provider: 02/22/24 20:41 Source: patient Mode of arrival: Family Vehicle Limitations: no limitations History of Present Illness HPI narrative: Patient is a 78-year-old male. He has a diabetic. Recently started on Januvia and Jardiance. Is here for evaluation of a rash on his groin area. It does burn to the touch. It does get worse when he puts water on the area. It is red. No testicular pain and no problems urinating. No fevers. It has been worsening over the past several days/weeks. Related Data Home Medications Medication Instructions Recorded Confirmed omega 7-geh-yhr-fish oil 1,000 mg 1 tab PO BID ##0 07/02/11 12/31/18 (120 mg-180 mg) capsule (Fish Oil) cetirizine 10 mg capsule 1 tab PO BID 12/31/18 01/04/19 montelukast 10 mg tablet 10 mg PO QAM Allergies 12/31/18 01/04/19 tamsulosin 0.4 mg capsule 0.4 mg PO BEDTIME Urinary retention 12/31/18 01/04/19 empagliflozin 25 mg tablet 25 mg PO DAILY 02/22/24 02/22/24 (Jardiance) phentermine 15 mg capsule 15 mg PO DAILY 02/22/24 02/22/24 sitagliptin phosphate 25 mg tablet 25 mg PO DAILY 02/22/24 02/22/24 (Januvia) Previous Rx's Medication Instructions Recorded atorvastatin 20 mg tablet (Lipitor) 20 mg PO HS #90 tabs 03/30/17 lisinopril 10 1 tab PO QDAY #90 tabs 03/30/17 mg-hydrochlorothiazide 12.5 mg tablet (Zestoretic) metformin 500 mg tablet 500 mg PO BID #360 tabs 05/27/17 (Glucophage) oxycodone 5 mg tablet 5 mg PO Q3HR PRN Pain, Moderate 01/06/19 (4-6) #60 tabs ketoconazole 2 % topical cream 1 applic topical DAILY #15 grams 02/23/24 Allergies Allergy/AdvReac Type Severity Reaction Status Date / Time No Known Drug Allergies Allergy Verified 01/04/19 09:50 Review of Systems Constitutional Constitutional: Reports system reviewed and no additional complaints, except as documented Musculoskeletal Musculoskeletal: Reports system reviewed and no additional complaints, except as documented Integumentary/Breasts Skin/Breast: Reports system reviewed and no additional complaints, except as documented Neurologic Neurologic: Reports system reviewed and no additional complaints, except as documented Patient History Medical History Itching Back pain Numbness Pre-diabetes Diverticulosis Localized edema Osteoarthritis Hyperlipidemia HTN (hypertension) Surgical History (Updated 12/31/18 @ 10:11 by Annel Gilliland RN) Status post cataract extraction of both eyes with insertion of intraocular lens History of colonoscopy Hx of tonsillectomy Status post arthroscopy (~2011) Status post arthroscopy (~2007) Social History household members: spouse Smoking Status: Never smoker alcohol intake: current Smoking Status: Never smoker alcohol intake frequency: 3 or more drinks per day Substance Use Type: does not use Exam Initial Vital Signs Initial Vital Signs: Vital Signs Temperature 97.0 F L 02/22/24 20:19 Pulse Rate 93 H 02/22/24 20:19 Respiratory Rate 16 02/22/24 20:19 Blood Pressure 169/81 H 02/22/24 20:19 Pulse Oximetry 96 02/22/24 20:19 Oxygen Delivery Method Room Air 02/22/24 20:19 Const General: cooperative and comfortable GI Inspection: normal to inspection and non-distended Palpation: soft Penis: normal penis Skin Other: Patient with a red beefy rash located in the perineum in the groin area. No vesicles. No pustules. There was no crepitus. No induration. It does involve the scrotum. Does not involve the penis. Course Orders Ordered: ED Orders 02/22/24 21:18 Basic Metabolic Panel Stat Complete Blood Count AUTO DIFF Stat 02/22/24 22:01 CT pelvis w con Stat Discontinued Medications Sodium Chloride (Normal Saline 0.9%) 1,000 mls @ 1,000 mls/hr IV BOLUS ONE Stop: 02/22/24 23:00 Last Infusion: 02/22/24 23:26 Dose: Infused Documented By: Admin: 02/22/24 22:18 Dose: 1,000 mls/hr Documented By: BS Vital Signs Vital signs: Vital Signs - 8 hr 02/22/24 20:19 02/22/24 22:49 02/22/24 22:49 Temperature 97.0 F L Pulse Rate 93 H 75 Respiratory Rate 16 Blood Pressure 169/81 H 128/64 Pulse Oximetry 96 96 Oxygen Delivery Method Room Air Room Air 02/22/24 22:50 02/22/24 23:00 02/22/24 23:00 Temperature Pulse Rate 79 75 Respiratory Rate 14 Blood Pressure 128/64 125/63 Pulse Oximetry 96 94 Oxygen Delivery Method Room Air Room Air 02/22/24 23:30 02/22/24 23:30 02/23/24 00:00 Temperature Pulse Rate 71 Respiratory Rate Blood Pressure 135/72 143/72 H Pulse Oximetry 97 Oxygen Delivery Method Room Air 02/23/24 00:00 Temperature Pulse Rate 75 Respiratory Rate Blood Pressure Pulse Oximetry 96 Oxygen Delivery Method Room Air MDM - Skin/Abscess/Foreign Bdy Lab Data Attestation: I reviewed the patient's lab results. 02/22/24 21:18 02/22/24 21:18 Labs: Lab Results 02/22/24 Range/Units 21:18 WBC 9.2 (4.5-11.0) X10^3/uL RBC 4.35 L (4.5-5.9) X10^6/uL Hgb 13.7 (13.5-17.5) g/dL Hct 40.9 L (41-53) % MCV 94.0 (80-100) fL MCH 31.6 (26-34) PG MCHC 33.6 (30-36) % RDW 13.1 (11.6-14.8) % Plt Count 210 (150-400) X10^3/uL Neut % (Auto) 65.6 (50-75) % Lymph % (Auto) 22.6 L (25-40) % [place] % (Auto) 9.7 (3-14) % Eos % (Auto) 1.7 L (2-4) % Baso % (Auto) 0.4 (0-2) % Neut # (Auto) 6000 (8376-4581) /uL Lymph # (Auto) 2100 (4250-3483) /uL [place] # (Auto) 900 (0-900) /uL Eos # (Auto) 200 (0-450) /uL Baso # (Auto) 0 (0-100) /uL Sodium 142 (137-145) mmol/L Potassium 3.8 (3.4-5.1) mmol/L Chloride 110 H (98-107) mmol/L Carbon Dioxide 21 L (22-32) mmol/L BUN 43 H (9-20) mg/dL Creatinine 1.28 H (0.66-1.25) mg/dL Estimated GFR 57 L (>60) mL/min BUN/Creatinine Ratio 33.6 H (6-22) Glucose 130 H (80-110) mg/dL Calcium 9.8 (8.4-10.2) mg/dL Imaging Data CT pelvis: Radiologist's Impression: PROCEDURE: CT PELVIS W CON INDICATIONS: Perineal rash, history of diabetes, eval for Galilea's TECHNIQUE: After the administration of intravenous contrast, 5 mm thick sections acquired from the iliac crests to the symphysis. 5 mm coronal and sagittal reformats were acquired. For radiation dose reduction, the following was used: automated exposure control, adjustment of mA and/or kV according to patient size. COMPARISON: None. FINDINGS: Image quality: Diagnostic. PELVIS: Peritoneum and Bowel: Bowel loops demonstrate normal wall thickness and caliber. No free fluid or air. Pelvic Organs: No pelvic mass. Bladder: Normal wall thickness, accounting for underdistension. No perivesicular fat stranding. Pelvic Nodes: No enlarged lymph nodes. Miscellaneous: No inguinal hernias are seen. Prostate is enlarged. There is right hydrocele. Bones: No aggressive osseous abnormality. Moderate to severe spondylitic changes in lower lumbar spine. IMPRESSION: 1. No acute abnormality in pelvis. 2. Right hydrocele in scrotum. 3. Enlargement of prostate.5 MDM Narrative Medical decision making narrative: CT scan does not show any deep infection such as Galilea's. His exam is most consistent with a yeast/fungal infection. No abscesses. No pustules. Recommended that the patient try topical antifungal agents to begin with. Prescription was sent to the pharmacy of his choice. We discussed other things to include keeping the area dry and cool. Keeping it clean. He can shower with soap and water. Advised that he follow-up with his primary doctor specifically if his symptoms are not improving he was given return precautions. He expressed understanding and agreement. Discharge Plan Departure Patient Disposition: Home Clinical Impression: Tinea cruris Instructions: Jock Itch Activity Restrictions/Additional Instructions: You can continue to take all of your medications as directed. I recommend that you use the topical cream 1 time a day as directed. Be sure that you contact your primary doctor for a follow-up. You can shower like normal. You can use soap and water like normal. Recommend clothing that provides adequate ventilation to the area. Return to the emergency department for new symptoms. Prescriptions: New ketoconazole 2 % cream 1 applic topical DAILY Qty: 15 4RF No Action omega 6-urq-uqy-fish oil [Fish Oil] 1,000 mg (120 mg-180 mg) Capsule 1 tab PO BID Qty: 0 atorvastatin [Lipitor] 20 MG tablet 20 mg PO HS Qty: 90 1RF lisinopril-hydrochlorothiazide [Zestoretic] 10 MG/12.5 MG tablet 1 tab PO QDAY Qty: 90 1RF metformin [Glucophage] 500 MG tablet 500 mg PO BID Qty: 360 1RF Januvia 25 mg tablet 25 mg PO DAILY Jardiance 25 mg tablet 25 mg PO DAILY phentermine 15 mg capsule 15 mg PO DAILY tamsulosin 0.4 mg Capsule 0.4 mg PO BEDTIME montelukast 10 mg Tablet 10 mg PO QAM cetirizine 10 mg Capsule 1 tab PO BID oxycodone 5 mg Tablet 5 mg PO Q3HR PRN (Reason: Pain, Moderate (4-6)) Qty: 60 0RF Referrals: Rachel Og ARNP [Non-Staff] - Stand Alone Forms: Patient Portal/API
[2024-02-22] MEDS: SODIUM CHLORIDE 0.9% 1,000 ML 1000 ML IV (22:18)
[2024-02-22 22:49] VITALS: BP 128/64; PULSE 75; O2SAT 96
[2024-02-22 22:50] VITALS: BP 128/64; PULSE 79; RESP 14; O2SAT 96
[2024-02-22 23:00] VITALS: BP 125/63; PULSE 75; O2SAT 94
[2024-02-22 23:30] VITALS: BP 135/72; PULSE 71; O2SAT 97
[2024-02-23] VITALS: BP 143/72; PULSE 75; O2SAT 96
== END 2024-02-23 00:30 | disposition home or self-care (01) ==
PROVIDERS: Emergency Provider Emergency Medicine; PCP Family Medicine
DX: B35.6 Tinea cruris (principal)
CPT/HCPCS: 36415; 72193; 80048; 85025; 99284; Q9967